=== PATIENT | female | born 1995 | race Caucasian/White ===

== ENCOUNTER → 2017-03-06 | Outpatient (CLI) | payer BC, OTHER ==
[~2017-03-06] MED LIST: BCPILLS PO; IRON PO; NAPR1TAB9 PO
== END | disposition home or self-care (01) ==
LOC: C.LAB1850 11:21
PROVIDERS: ATTEND Internal Medicine
DX: E61.1 Iron deficiency (principal)

== ENCOUNTER → 2017-03-18 | Day surgery (SDC) | payer BC, OTHER ==
[2017-03-03 12:45] VITALS: Ht 188 cm; Wt 72.7 kg
[~2017-03-18] VITALS: Ht 188 cm; Wt 72.7 kg
[~2017-03-18] MED LIST changes: +BUPIVACAINE 0.25% 2.5MG/ML PF 10 ML VIAL ONE; +IOPAMIDOL INJ 61% 15 ML VIAL ONE; +LIDOCAINE HCL 1% MPF 5 ML VIAL ONE; +METHYLPREDNISOLONE ACETATE 80 MG/ML VIAL ONE; +SODIUM CHLORIDE 0.9% INJ 10 ML VIAL ONE
[2017-03-18 15:56] VITALS: TEMP 36.3
--- NOTE | 2017-03-18 16:00 | Discharge Instructions ---
Discharge Instructions Date of Service Mar 18, 2017. Visit Reason for Visit: Lumbar Spondylolysis Discharge Discharge Diagnosis / Problem: low back pain Discharge Goals Goal(s): Decrease discomfort, Improve function Activity Recommendations Activity Limitations: resume your previous activity Anesthesia . Post Anesthesia Instructions: If you have had General Anesthesia or IV Sedation: * Do not drive today. * Resume driving when surgeon permits. * Do not make important decisions or sign legal documents today. * Call surgeon for: 1. Temperature elevations greater than 101 degrees F. 2. Uncontrollable pain. 3. Excessive bleeding. 4. Persistent nausea and vomiting. 5. Medication intolerance (nausea, vomiting or rash). * For nausea and vomiting use only clear liquids such as: tea, soda, bouillon until nausea subsides, then gradually increase diet as tolerated. * If you have any concerns or questions, call your surgeon's office. If physician is unavailable and it is an emergency, call 911 or go to the nearest emergency room. . Diet Recommendations Recommended Home Diet: resume previous diet Procedures Procedures Performed: Lumbar Epidural Steroid Injection Pending Studies Studies pending at discharge: no Medical Emergencies . Who to Call and When: Medical Emergencies: If at any time you feel your situation is an emergency, please call 911 immediately. . Non-Emergent Contact Non-Emergency issues call your: Specialist . . "Provider Documentation" section prepared by Carlos Kaye. .
[2017-03-18 16:02] VITALS: BP 113/69; PULSE 45; O2SAT 100
--- NOTE | 2017-03-18 16:18 | OPERATIVE REPORT ---
DATE OF OPERATION: 03/18/2017 PREOPERATIVE DIAGNOSIS: Left L5 pars defect. POSTOPERATIVE DIAGNOSIS: Same. PROCEDURE: Left L5 pars defect injection under fluoroscopic guidance. SURGEON: Dr. Carlos Kaye. INDICATIONS: The patient is a 21-year-old white female who has had pars injections last year. These relieved pain in her and improved her function. She presents today for a pars defect injection to provide her with relief to decrease discomfort and improve function. PHYSICAL EXAMINATION: Pleasant female seated comfortably in no apparent distress. She has point tenderness to palpation of the left pars region, worse with extension. CONSENT: Verbal and written consent was obtained from the patient. Risks and benefits were reviewed. Risks include but are not limited to abscess and allergic reaction. She wishes to proceed. PROCEDURE: The patient was taken back to the special procedures room of the [facility] where she was maintained in a prone position. Backside was cleansed with Betadine x3 and a dry sterile dressing was applied. Fluoroscope was used to identify the left L5 pars defect in an oblique view. The overlying skin was anesthetized with 3.5 mL of lidocaine 1% with a 25 gauge 1.5-inch needle. A 25 gauge 3.5 inch spinal needle was then directed under fluoroscopic guidance, right into the pars defect. She then underwent injection after negative aspiration of 40 mg of Depo-Medrol 0.5 mL and 0.5 mL of bupivacaine 0.25%. Injection was well tolerated. DISPOSITION: 1. The patient is taken out into the discharge recovery area where she will be discharged home once discharge criteria have been met. 2. Follow up in the [facility] office in 2-4 weeks. I attest to the content of the Intraoperative Record and any orders documented therein. Any exception s are noted below.
== END | disposition home or self-care (01) ==
LOC: X.SURG 14:04
PROVIDERS: ATTEND Physical Medicine & Rehabilitation
DX: M43.16 Spondylolisthesis, lumbar region (principal)